=== PATIENT | female | born 2000 | race Two or more races ===

== ENCOUNTER 2024-11-24 11:51 | Outpatient (CLI) | payer OTHER | END 2024-11-24 11:52 | disposition home or self-care (01) | LOC: PRENATAL 11:51 | PROVIDERS: ATTEND Obstetrics & Gynecology Maternal & Fetal Medicine | DX: O44.00 Complete placenta previa NOS or without hemorrhage, unspecified trimester (principal); O34.219 Maternal care for unspecified type scar from previous cesarean delivery; Z3A.28 28 weeks gestation of pregnancy ==

== ENCOUNTER 2025-02-05 09:11 | Inpatient (IN) | payer OTHER ==
[~2025-02-05] VITALS: Ht 162.6 cm; Wt 90.7 kg
[2025-02-05 08:31] VITALS: BP 109/68
[2025-02-05] MEDS ORDERED: RINGERS SOLUTION,LACTATED 1,000 ML IV SCH (09:30)
[2025-02-05] MEDS ORDERED: PRENATABS RX T1 EACH PO (09:46)
[2025-02-05 11:07] LABS: HEMATOCRIT 37.1 % (36.0-45.00); HEMOGLOBIN 12.8 g/dL (12.0-15.00); MEAN CELL VOLUME 90.2 fL (80.00-100.00); MEAN CORPUSCULAR HEMOGLOBIN 31.2 pg (27.00-32.0); MEAN CORPUSCULAR HGB CONC 34.6 g/dl (32.0-36.0); PLATELET COUNT 279 K/uL (150-450); RED BLOOD COUNT 4.11 M/uL (4.00-6.00)
[2025-02-05 11:08] VITALS: BP 112/75; O2SAT 97
[2025-02-05 11:08] LABS: URINE APPEARANCE Clear; URINE BILIRRUBIN Negative (NEGATIVE); URINE BLOOD Negative; URINE COLOR Yellow; URINE GLUCOSE Negative (NEGATIVE); URINE KETONE Negative (NEGATIVE); URINE LEUKOCYTE Negative; URINE NITRATE Negative; URINE PROTEIN Negative (NEGATIVE)
[2025-02-05 11:15] LABS: URINE BACTERIA 431.9 uL (0.0-1933); URINE EPITHELIAL CELLS 30.2 uL (0.0-38.8); URINE WBC 9.9 uL (0.0-23.2)
[2025-02-05 11:22] LABS: URINE CAST 0.44 uL (0.0-1.40)
[2025-02-05 11:29] LABS: INR 0.94; PARTIAL THROMBOPLASTIN TIME 25.9 SECONDS (22.0-34.0); PROTHROMBIN TIME 10.3 SECONDS (9.0-11.5)
[2025-02-05 11:49] LABS: ALBUMIN 2.7 gm/dL (3.4-5.0); BILIRUBIN TOTAL 0.26 mg/dL (0.3-1.2); CALCIUM 8.8 mg/dL (8.5-10.1); CREATININE SERUM 0.38 mg/dL (0.55-1.02); GFR 204.71; GLOBULINA 3.6 G/DL (2.4-3.5); POTASSIUM 4.25 mEq/L (3.5-5.1); TOTAL PROTEIN 6.3 gm/dL (6.4-8.2)
[2025-02-05 15:00] VITALS: BP 113/74
[2025-02-05] MEDS ORDERED: ERYTHROMYCIN BASE OPHT 1GM EACH TUBE OP ONE (17:24)
[2025-02-05] MEDS ORDERED: OXYTOCIN 10 UNITS/ML VIAL ONE (17:24)
[2025-02-05] MEDS ORDERED: MORPHINE SULFATE 4 MG/ML VIAL IV ONE (19:45)
[2025-02-05] MEDS ORDERED: OXYTOCIN 20 UNITS/1000ML RL PIGGYBAG IV ONE (22:15)
[2025-02-05] MEDS ORDERED: CARBOPROST TROMETHAMINE 250 MCG/ML AMPUL IM ONE ×2 (22:29→23:00)
[2025-02-06 00:05] VITALS: BP 121/79
[2025-02-06] MEDS ORDERED: MORPHINE SULFATE 4 MG/ML VIAL IV PRN (00:30)
[2025-02-06 05:00] VITALS: BP 110/75
[2025-02-06] MEDS ORDERED: OXYTOCIN 10 UNITS/ML VIAL ONE (05:42)
[2025-02-06 08:44] VITALS: BP 113/72; O2SAT 98
[2025-02-06 08:58] LABS: HEMOGLOBIN 10.7 g/dL (12.0-15.00); MEAN CELL VOLUME 90.7 fL (80.00-100.00); MEAN CORPUSCULAR HEMOGLOBIN 31.3 pg (27.00-32.0); MEAN CORPUSCULAR HGB CONC 34.5 g/dl (32.0-36.0); PLATELET COUNT 261 K/uL (150-450); RED BLOOD COUNT 3.42 M/uL (4.00-6.00); RED CELL DISTRIBUTION WIDTH 14.3 % (11.5-14.5)
[2025-02-06] MEDS ORDERED: OxyCODONE HCL/APAP UD (PERCOCET) PO PRN (13:00)
[2025-02-06 13:43] VITALS: BP 100/68
[2025-02-06 16:00] VITALS: BP 119/80
[2025-02-07 00:26] VITALS: BP 130/79
[2025-02-07 08:30] VITALS: BP 111/73; O2SAT 100
[2025-02-07 13:15] VITALS: BP 105/69; O2SAT 100
[2025-02-07 16:00] VITALS: BP 113/74
[2025-02-08] VITALS: BP 103/64
[2025-02-08 08:49] VITALS: BP 113/74
[2025-02-08] MEDS ORDERED: OxyCODONE HCL 5 MG TABLET (ROXICODONE) PO PRN (14:00)
[2025-02-08 16:10] VITALS: BP 108/73
[2025-02-08] MEDS ORDERED: ACETAMINOPHEN 325 MG TABLET PO SCH (17:00)
== END 2025-02-08 18:46 | disposition home or self-care (01) | DRG 788 ==
LOC: OB/GYN 09:11 → LDR 09:11 → O/R 17:47 → OB/GYN 20:15
PROVIDERS: ADMIT Obstetrics & Gynecology Obstetrics; ATTEND Obstetrics & Gynecology Obstetrics
PROC: 4A1HXCZ Monitoring of Products of Conception, Cardiac Rate, External Approach (ICD-10-PCS; 2025-02-05)
PROC: 10D00Z1 Extraction of Products of Conception, Low, Open Approach (ICD-10-PCS; principal; 2025-02-05 16:45)
DX: O34.211 Maternal care for low transverse scar from previous cesarean delivery (principal); Z3A.38 38 weeks gestation of pregnancy; Z37.0 Single live birth